=== PATIENT | female | born 1990 | race Caucasian/White ===

== ENCOUNTER 2018-04-02 08:17 | Outpatient (CLI) | payer OTHER | END 2018-04-02 09:00 | disposition home or self-care (01) | LOC: NUCLEAR 08:17 | DX: R07.89 Other chest pain (principal) ==

== ENCOUNTER 2022-10-23 12:22 | Outpatient (CLI) | payer OTHER | END 2022-10-23 12:36 | disposition home or self-care (01) | LOC: RAD 12:22 | DX: S63.642A Sprain of metacarpophalangeal joint of left thumb, initial encounter (principal) ==

== ENCOUNTER 2022-11-21 11:21 | Outpatient (CLI) | payer OTHER | END 2022-11-21 16:02 | disposition home or self-care (01) | LOC: RAD 11:21 | DX: S63.642A Sprain of metacarpophalangeal joint of left thumb, initial encounter (principal) ==

== ENCOUNTER → 2025-01-17 10:59 | Outpatient (CLI) | payer OTHER | END | disposition home or self-care (01) | LOC: PRENATAL 10:59 | PROVIDERS: ATTEND Obstetrics & Gynecology Maternal & Fetal Medicine | DX: O36.80X0 Pregnancy with inconclusive fetal viability, not applicable or unspecified (principal); O26.893 Other specified pregnancy related conditions, third trimester; O26.853 Spotting complicating pregnancy, third trimester; O09.513 Supervision of elderly primigravida, third trimester; Z3A.08 8 weeks gestation of pregnancy ==

== ENCOUNTER → 2025-01-25 | Day surgery (SDC) | payer OTHER ==
[~2025-01-25] MED LIST: POVIDONE-IODINE 118 ML BOTT TOP ONE
== END | disposition home or self-care (01) ==
LOC: ADM 01-20 09:15 → CIR.AMB 07:00
PROVIDERS: ATTEND Obstetrics & Gynecology
DX: O01.9 Hydatidiform mole, unspecified (principal)

== ENCOUNTER 2025-02-20 13:12 | Emergency (ER) | payer OTHER ==
[~2025-02-20] VITALS: Ht 162.6 cm; Wt 52.2 kg
[2025-02-20] MEDS ORDERED: 0.9 % SODIUM CHLORIDE 1,000 ML IV STA (14:04)
[2025-02-20 14:24] LABS: BASO % 0.4 % (0.1-1.2); EOS # 0.04 (0.04-0.54); EOS % 0.4 % (0.7-7.0); LYMPH # 1.01 (1.18-3.74); LYMPH % 10.7 % (19.3-53.1); MEAN PLATELET VOLUME 8.30 fl (9.4-12.4); MONO # 0.51 (0.24-0.82); MONO % 5.4 % (4.7-12.5); NEUT # 7.81 (1.56-6.13); NEUT % 82.8 % (34.0-71.1); RED CELL DISTRIBUTION WIDTH 12.5 % (11.6-14.4)
[2025-02-20] MEDS ORDERED: TRAMADOL HCL 50 MG TABLET PO STA (14:40)
[2025-02-20 14:47] LABS: INR 0.99
[2025-02-20 14:48] LABS: ALT/SGPT 18.0 U/L (12-78); AST/SGOT 13.0 U/L (15-37); BILIRUBIN TOTAL 0.38 mg/dL (0.3-1.2); BUN CREA RATIO 13.0 (7.0-25.0); CREATININE SERUM 0.69 mg/dL (0.55-1.02); GFR 96.82; GLOBULINA 3.4 G/DL (2.4-3.5); GLUCOSE FASTING 108.0 mg/dL (65-100); OSMOLALITY SERUM 279.0 MOSM/KG (275-295)
[2025-02-20 17:47] LABS: BASO % 0.5 % (0.1-1.2); EOS # 0.00 (0.04-0.54); EOS % 0.0 % (0.7-7.0); LYMPH # 0.84 (1.18-3.74); LYMPH % 7.2 % (19.3-53.1); MEAN PLATELET VOLUME 8.40 fl (9.4-12.4); MONO # 0.33 (0.24-0.82); MONO % 2.8 % (4.7-12.5); NEUT # 10.40 (1.56-6.13); NEUT % 89.2 % (34.0-71.1); RED CELL DISTRIBUTION WIDTH 12.3 % (11.6-14.4)
[2025-02-20] MEDS ORDERED: ESTROGENS, CONJUGATED 25 MG VIAL IV ONE (23:45)
[2025-02-20] MEDS ORDERED: ESTROGENS, CONJUGATED 25 MG VIAL ONE (23:58)
[2025-02-21 05:46] LABS: BASO % 0.2 % (0.1-1.2); EOS # 0.02 (0.04-0.54); EOS % 0.2 % (0.7-7.0); LYMPH # 1.48 (1.18-3.74); LYMPH % 15.9 % (19.3-53.1); MEAN PLATELET VOLUME 8.10 fl (9.4-12.4); MONO # 0.71 (0.24-0.82); MONO % 7.7 % (4.7-12.5); NEUT # 7.02 (1.56-6.13); NEUT % 75.7 % (34.0-71.1); RED CELL DISTRIBUTION WIDTH 12.5 % (11.6-14.4)
[2025-02-22] MEDS ORDERED: PROFERRIN-FORT1 EACH (22:19)
[2025-02-22] MEDS ORDERED: AUROVELA 24 FE1 EACH PO (22:20)
== END 2025-02-21 09:17 | disposition home or self-care (01) ==
LOC: ER 13:12
PROVIDERS: General Practice; Preventive Medicine Public Health & General Preventive Medicine
DX: N93.8 Other specified abnormal uterine and vaginal bleeding (principal)

== ENCOUNTER 2025-02-22 21:19 | Inpatient (IN) | payer OTHER ==
[~2025-02-22] VITALS: Ht 162.6 cm; Wt 52.2 kg
--- NOTE | 2025-02-22 22:15 | NUR ---
PACIENTE ALERTA Y ORIENTADA X 3. REFIERE SANGRADO VAGINAL INTENSO DESDE EL MICHELLE QUE SE ATENDIO EN ER, EL SANGRADO DISMINUYO ÁNGEL HACEN 2 HRS VOLVIO A AUMENTAR Y PRESENTA COAGULOS GRANDES DE SUZAN.
[2025-02-22] MEDS ORDERED: PROFERRIN-FORT1 EACH (22:19)
[2025-02-22] MEDS ORDERED: AUROVELA 24 FE1 EACH PO (22:20)
[2025-02-22] MEDS ORDERED: RINGERS SOLUTION,LACTATED 1,000 ML IV ONE (23:45)
--- NOTE | 2025-02-23 00:45 | NUR ---
PACIENTE EVALUADA POR QUIEN ORDENA TRATAMIENTO MEDICO, SE LE ORIENTA A PACIENTE SOBRE EL MISMO Y REFIERE ENTENDER, SE LE COLECTAN MUESTRAS, BAJO MEDIDAS ASEPTICAS Y SE CANALIZA. SE LE COLOCAN IV FLUIDS EMI ORDEN. SE MANTIENE BAJO OBSERVACION POR CAMBIOS EN ABAD CONDICION.
[2025-02-23 01:30] LABS: BASO % 0.4 % (0.1-1.2); EOS # 0.00 (0.04-0.54); EOS % 0.0 % (0.7-7.0); LYMPH # 0.96 (1.18-3.74); LYMPH % 7.1 % (19.3-53.1); MEAN PLATELET VOLUME 8.70 fl (9.4-12.4); MONO # 0.47 (0.24-0.82); MONO % 3.5 % (4.7-12.5); NEUT # 11.96 (1.56-6.13); NEUT % 88.6 % (34.0-71.1); RED CELL DISTRIBUTION WIDTH 12.6 % (11.6-14.4)
[2025-02-23 01:36] LABS: INR 1.01
[2025-02-23 02:26] LABS: BUN CREA RATIO 13.0 (7.0-25.0); CREATININE SERUM 0.69 mg/dL (0.55-1.02); GFR 96.82; GLUCOSE FASTING 103.0 mg/dL (65-100); HCG QUANTITATIVE 57.0 mUI/mL (1-3); OSMOLALITY SERUM 282.0 MOSM/KG (275-295)
[2025-02-23] MEDS ORDERED: ONDANSETRON HCL 2 MG/ML VIAL IV STA (03:56)
--- NOTE | 2025-02-23 04:00 | NUR ---
SE LE ORIENTA A PACIENTE SOBRE NUEVO TRATAMIENTO MEDICO Y REFIERE ENTENDER, SE CONECTA A MONITOR CARDIACO Y OXIMETRIA DE PULSO CONTINUA, PERMISO DE TRANSFUCION ADJUNTADO A RECORD DE PACIENTE, SE LE MARTIN TUBOS PILOTOS, SE LITA EN LABORATORIO Y PERSONAL LLAMA A BANCO DE [place] DE [place] QUIENES REFIEREN QUE PACIENTE NO TIENE RECORD PREVIO VIGENTE. SE LE FAISAL TERCER TUBO KAYLAN Y SE MILAD EN LABORTORIO. INFORMACION DE PACIENTE (NOMBRE COMPLETO Y FECHA DE NACIMIENTO) FUE CORROBORADA CON LA MISMA.
[2025-02-23] MEDS ORDERED: ONDANSETRON HCL 2 MG/ML VIAL ONE (04:05)
[2025-02-23 09:16] VITALS: O2SAT 100
[2025-02-23 10:00] VITALS: BP 125/70
[2025-02-23 12:10] VITALS: BP 103/63
[2025-02-23] MEDS ORDERED: RINGERS SOLUTION,LACTATED 1,000 ML IV SCH (12:30)
[2025-02-23 16:30] VITALS: BP 93/57
[2025-02-24] VITALS: BP 91/55
[2025-02-24 08:00] VITALS: BP 104/67
[2025-02-24 10:57] LABS: BASO % 0.5 % (0.1-1.2); EOS # 0.05 (0.04-0.54); EOS % 0.6 % (0.7-7.0); LYMPH # 1.55 (1.18-3.74); LYMPH % 18.6 % (19.3-53.1); MEAN PLATELET VOLUME 9.00 fl (9.4-12.4); MONO # 0.61 (0.24-0.82); MONO % 7.3 % (4.7-12.5); NEUT # 6.07 (1.56-6.13); NEUT % 72.8 % (34.0-71.1); RED CELL DISTRIBUTION WIDTH 13.2 % (11.6-14.4)
[2025-02-24 16:00] VITALS: BP 115/77
[2025-02-25] VITALS: BP 106/69
[2025-02-25 08:00] VITALS: BP 119/75
== END 2025-02-25 10:31 | disposition home or self-care (01) | DRG 761 ==
LOC: ER → OB/GYN 02-23 10:02
PROVIDERS: General Practice; ADMIT Obstetrics & Gynecology; ATTEND Obstetrics & Gynecology
PROC: 30233N1 Transfusion of Nonautologous Red Blood Cells into Peripheral Vein, Percutaneous Approach (ICD-10-PCS; principal; 2025-02-23)
DX: N93.9 Abnormal uterine and vaginal bleeding, unspecified (principal)